=== PATIENT | male | born 1985 | race Caucasian/White ===

== ENCOUNTER 2018-01-04 01:08 | Emergency (ER) | payer OTHER ==
--- NOTE | 2018-01-04 02:22 | EDPHY ---
H & P Stated Complaint: BLOOD IN URINE STARTED YESTERDAY Time Seen by Provider: 01/04/18 01:25 HPI/ROS: HPI The patient presents with hematuria which began today during an 11 mi run. He describes pinkish colored urine without any pain associated with it. He had felt some mild left-sided flank pain which resolved and he thought was a cramp from his run. The hematuria lasted from about 3:00 p.m. Until just prior to arrival. It is now completely subsided and he is urinating clear yellow. He does not have any nausea or vomiting. He does not have any abdominal pain. He has no prior history of similar.. He does not have any new dysuria. REVIEW OF SYSTEMS Constitutional: No fever, no chills. Eyes: No discharge. ENT: No sore throat. Cardiovascular: No chest pain, no palpitations. Respiratory: No cough, no shortness of breath. Gastrointestinal: No abdominal pain, no vomiting. Genitourinary: Positive for hematuria. Musculoskeletal: No back pain. Skin: No rashes. Neurological: No headache. PMHx: [facility] Soc Hx: Avid runner, occasional tobacco use PHYSICAL General Appearance: Alert, no distress Eyes: Pupils equal and round no pallor or injection ENT, Mouth: Mucous membranes moist Respiratory: There are no retractions, lungs are clear to auscultation Cardiovascular: Regular rate and rhythm Gastrointestinal: Abdomen is soft and non-tender, no masses, bowel sounds normal Neurological: A&O, moves all extremities Skin: Warm and dry, no rashes Musculoskeletal: Neck is supple non tender Extremities: symmetrical, full range of motion Psychiatric: Patient is oriented X 3, there is no agitation Source: Patient Exam Limitations: No limitations - Personal History Current Tetanus/Diphtheria Vaccine: Unsure Current Tetanus Diphtheria and Acellular Pertussis (TDAP): Unsure - Medical/Surgical History Hx Asthma: No Hx Chronic Respiratory Disease: No Hx Diabetes: No Hx Cardiac Disease: No Hx Renal Disease: No Hx Cirrhosis: No Hx Alcoholism: No Hx HIV/AIDS: No Hx Splenectomy or Spleen Trauma: No - Social History Smoking Status: Current some day smoker Constitutional: Initial Vital Signs Temperature (C) 36.7 C 01/04/18 01:11 Heart Rate 98 01/04/18 01:11 Respiratory Rate 16 01/04/18 01:11 Blood Pressure 154/88 H 01/04/18 01:11 O2 Sat (%) 98 01/04/18 01:11 O2 Delivery Mode Room Air Allergies/Adverse Reactions: amoxicillin Allergy (Verified 01/04/18 01:10) Home Medications: Medication Instructions Recorded NK [No Known Home Meds] 01/04/18 Medical Decision Making Procedures: Bedside limited abdominal Ultrasound- performed and interpreted by me. Indication: Hematuria Findings: No left-sided hydronephrosis, no free fluid noted, decompressed bladder Impression: No left-sided hydronephrosis Differential Diagnosis: This is a 32-year-old male with transient hematuria in the setting of 11 mild drawn. This is now resolved and he has clear urine. He did had transient left- sided flank pain which he thought was a cramp from running. He has no prior history of similar. Labs were checked and UA showed trace leukocyte esterase and white blood cells, however no blood her red blood cells to suggest hematuria. Rhabdomyolysis is unlikely. Exercise induce hematuria is likely cause of his symptoms. Because of his flank pain, I did perform a bedside renal ultrasound which demonstrated no hydronephrosis making ureterolithiasis an unlikely cause of his symptoms. Given he is asymptomatic now, I will discharge him. I have sent a urine culture in the case that he has a hemorrhagic cystitis, however this would be quite unusual in a young male. - Data Points Laboratory Results: 01/04/18 01:15 Urine Color YELLOW Urine Appearance CLEAR Urine pH 6.0 (5.0-7.5) Ur Specific [place] 1.010 (1.002-1.030) Urine Protein NEGATIVE (NEGATIVE) Urine Ketones NEGATIVE (NEGATIVE) Urine Blood NEGATIVE (NEGATIVE) Urine Nitrate NEGATIVE (NEGATIVE) Urine Bilirubin NEGATIVE (NEGATIVE) Urine Urobilinogen NEGATIVE EU EU (0.2-1.0) Ur Leukocyte Esterase TRACE H (NEGATIVE) Urine RBC 1-3 /hpf /hpf (0-3) Urine WBC 5-10 /hpf H /hpf (0-3) Ur Epithelial Cells NONE SEEN /lpf /lpf (NONE-1+) Urine Mucus TRACE /lpf /lpf (NONE-1+) Urine Glucose NEGATIVE (NEGATIVE) Departure - Departure Disposition: Home, Routine, Self-Care Clinical Impression: Hematuria Qualifiers: Hematuria type: unspecified type Qualified Code(s): R31.9 - Hematuria, unspecified Condition: Good Instructions: Hematuria (ED) Additional Instructions: I suspect the blood in your urine was related to exercise. It is also possible that you may have a urine infection. We have sent your urine for culture testing and if it returns showing signs of infection we will call you and prescribed an antibiotic. Otherwise, please make sure to stay hydrated. If you have any additional episodes of this that are not exercise related, you should follow up with primary care at the [facility]. Referrals: NONE *PRIMARY CARE P,. [Primary Care Provider] - As per Instructions
[2018-01-04 02:31] VITALS: BP 134/86
== END 2018-01-04 02:30 | disposition home or self-care (01) ==
DX: R31.9 Hematuria, unspecified (principal); F17.200 Nicotine dependence, unspecified, uncomplicated

== ENCOUNTER 2019-01-21 14:16 | Emergency (ER) | payer OTHER ==
--- NOTE | 2019-01-21 14:33 | EDPHY ---
General - History Smoking Status: Current some day smoker Time Seen by Provider: 01/21/19 14:32 Narrative: CLINICAL IMPRESSION: Multiple abrasions, left hand laceration x2 ASSESSMENT/PLAN: Patient is a 33-year-old male with no significant medical history who presents to the emergency department complaints of multiple hand abrasions and left hand laceration. Physical examination reveals multiple abrasions, 1 cm laceration overlying the 3rd metacarpal and a 1 cm laceration over lying the left pointer, dorsal aspect PIP. There is no evidence of deep structure involvement, neurovascular compromise, foreign body, or bony involvement. The wound was not contaminated, tetanus status was up-to-date. The wounds were irrigated and then repaired as discussed in the procedure note, the patient tolerated this well. Wound care instructions discussed, he will return to the emergency department 7- 10 days for suture removal. Sooner for any concerns. ED PROCEDURES: Laceration Repair Verbal consent obtained by patient. Risks discussed, including but not limited to infection, pain, retained foreign body, need for additional repair, poor cosmetic result, tendon damage, nerve damage, poor wound healing, vascular damage. Alternatives to repair discussed. Seaman protocol used to establish correct patient, procedure, equipment and site. Anesthesia obtained by local infiltration. Anesthetized with 1% lidocaine with epinephrine. Laceration location #1 dorsal aspect of the left pointer finger overlying the PIP, 1 cm. #2 1 cm laceration overlying the 3rd MCP. Both lacerations 3 mm deep. Repair type with simple. Patient was prepped and draped in usual sterile fashion. Hemostasis achieved with direct pressure. Wound explored through full range of motion and entire depth of wound probed and visualized with gloved finger. No suspicion for nerve damage, tendon damage, underlying fracture, vascular damage, foreign body, or contamination. Area was cleansed with Shur-Clens and irrigated with sterile saline as per protocol. No foreign body or material removed. Repair method 5.0 Prolene. 2 sutures placed at each laceration. Well aligned, closely approximated. wound was dressed with antibiotic ointment and dressing. Patient tolerated well with no immediate complications. Wound care: Clean and dry x 24 hours, gently clean with soap and water, cover with topical antibiotic ointment/bandage. Suture/Staple removal: 7-10 Days CHIEF COMPLAINT: Laceration HPI: Patient is a 33-year-old male with no significant medical history who presents to the emergency department with complaints of multiple abrasions and laceration to his left hand. Patient reports he was climbing just prior to arrival, as he was climbing down he got his hand caught causing him to scrape both hands and subsequently sustaining a laceration to multiple spots on his left hand. Patient did not fall. He denies any numbness or tingling of his hand or digits. Patient denies any other complaint or concern. They were able to get the bleeding under control. Patient is right handed, he is up-to-date on his tetanus status. REVIEW OF SYSTEMS: All other systems negative, please see HPI. PHYSICAL EXAM: General Appearance: Alert, oriented, appropriate for age, cooperative, NAD, well hydrated, non-toxic appearing, VSS, no hypoxia. Neurological: Alert and oriented x 3. Cranial nerves 2-12 grossly intact. Skin: Warm, dry. Upper Extremities: Bilateral hands are nontender with full range of motion. The right hand has a superficial abrasion overlying the dorsal PIP of the right pointer finger. Finger is nontender, each interphalangeal joint was tested independently with full strength and mobility. Two point discrimination is intact distally. Left hand with multiple superficial lacerations overlying the dorsal aspect of his hand. There is a 1 cm laceration overlying the 3rd metacarpal. Metacarpals are nontender. Patient has full range of motion of all fingers. He has no phalangeal tenderness to palpation. Two point discrimination is intact distally. The radial, ulnar and median nerves were all tested bilaterally. Radial nerve: Patient is able to extend wrist and fingers of the local joints. Ulnar nerve: Patient is able to abduct all fingers. Median nerve patient is able to oppose thumb to pinky. Radial pulse 2 +bilaterally. Lower Extremities: Intact distal pulses, No edema, No tenderness, No cyanosis, full range of motion intact, No calf tenderness bilaterally. MEDICAL DECISION MAKING: Patient was seen independently. Secondary supervising physician at time of evaluation was Dr. Soni, he did not evaluate this patient. Diagnosis: Multiple abrasions, left hand lacerations. Summary: See assessment and plan for summary of ED visit Decision to obtain medical records or history from someone other than the patient: No Review / Summarize previous medical records: Yes Disposition: Stable, discharge ([place]) Medical Decision Making: I did not see this patient while he was in the emergency department. However his care was discussed with the PA while the patient was in the department. I agree with treatment plan and management (Eliazar Soni) - Objective Vital Signs: Initial Vital Signs Temperature (C) 36.5 C 01/21/19 14:25 Heart Rate 88 01/21/19 14:25 Respiratory Rate 16 01/21/19 14:25 Blood Pressure 112/74 01/21/19 14:25 O2 Sat (%) 99 01/21/19 14:25 O2 Delivery Mode Room Air Allergies/Adverse Reactions: amoxicillin Allergy (Verified 01/04/18 01:10) Home Medications: Medication Instructions Recorded NK [No Known Home Meds] 01/04/18 Departure - Departure Disposition: Home, Routine, Self-Care Clinical Impression: Abrasion, multiple sites Laceration of hand Qualifiers: Encounter type: initial encounter Foreign body presence: without foreign body Laterality: left Qualified Code(s): S61.412A - Laceration without foreign body of left hand, initial encounter Condition: Good Instructions: Laceration (ED) Additional Instructions: DISCHARGE INSTRUCTIONS FROM YOUR PROVIDER Thank you for visiting our emergency department today. Keep wound clean and dry for 24 hours. Then remove dressing, clean at least twice daily or when soiled with soap and water, apply antibiotic ointment and dressing. Do not soak the wound while the stitches are in place. Elevate hand as much as possible for the next 24 hours to decrease the swelling and pain. Wear the splint to immobilize the finger for the next 2-5 days to facilitate rapid healing. Anticipate suture removal in 7-10 days. For pain control: You may take Tylenol, I recommend 500-1000 mg every 6-8 hours as needed. Take with food and a full glass of water. Stop taking if this is upsetting you stomach. Do not exceed 4000 mg in a 24 hr period. You may also take ibuprofen, recommend 400 mg every 6 hr. Take with food and a full glass of water. Stop taking if this upsets your stomach. Do not exceed 2400 mg in a 24 hr period. Schedule a follow-up visit with your primary care physician for suture removal in 7-10 days and sooner for wound check for any concerns. As discussed the laceration was not deep enough to visualize the tendon today. It is unlikely a tendon injury is present and your tendon function is currently intact. However, if at any time, you feel a pop and have difficulty bending or straightening the finger, you should seek re-evaluation from a hand specialist urgently. Return for signs of wound infection ie: redness, swelling, drainage, foul odor, red streaks, fever, chills, pain, bleeding, if the stitches pop, if the wound opens, for numbness, tingling, weakness, discoloration of the finger, coolness of the finger, inability to move or bend the finger or for any other new, worsening or worrisome symptoms. People present with illnesses and injuries in different ways, and it is always possible that we have missed something. Again, thank you for choosing our emergency department. We hope that you feel better. Referrals: ED,PHYSICIAN BOB [Medical Doctor] - As per Instructions (7 days for suture removal)
[2019-01-21 16:06] VITALS: BP 120/86
== END 2019-01-21 16:00 | disposition home or self-care (01) ==
PROC: 0HQGXZZ Repair Left Hand Skin, External Approach (ICD-10-PCS; principal; 2019-01-21)
DX: S61.412A Laceration without foreign body of left hand, initial encounter (principal); W17.81XA Fall down embankment (hill), initial encounter; Y93.31 Activity, mountain climbing, rock climbing and wall climbing
CPT/HCPCS: L3925